=== PATIENT | male | born 1980 | race Caucasian/White ===

== ENCOUNTER → 2019-03-21 12:57 | Outpatient (CLI) | payer OTHER, SELFPAY ==
--- NOTE | 2019-03-21 13:01 | US_ITS ---
PROCEDURE: US KIDNEY CLINICAL INDICATION: COMPARISON: CT ABDOMEN PELVIS WO CON from 03/20/2019 FINDINGS: The right kidney is [id number]. No hydronephrosis, cortical thinning, or renal mass or perinephric fluid collection is evident. The left kidney is [id number]. No hydronephrosis. There is an exophytic hypoechoic nodule projecting off of the posterior aspect of the left kidney. Imaging is somewhat difficult due to the position. This measures 1.7 cm and is hypoechoic however there is suggestion of some shadowing and nodularity. No enhanced through transmission of sound. With some enhanced through transmission of sound. This may represent a cyst. Would recommend a short-term follow-up to confirm stability. IMPRESSION: Exophytic left renal nodule may represent a exophytic cyst hyperdense on CT. Recommend 3 month ultrasound follow-up to confirm short term stability Dictated by: Juan Davis MD 03/21/2019 16:34 Electronically signed by Juan Davis MD in [place] 03/21/2019 16:34
== END ==
PROVIDERS: PCP Nurse Practitioner Family; Visit Provider Nurse Practitioner Family
DX: N28.9 Disorder of kidney and ureter, unspecified (principal)
CPT/HCPCS: 76770

== ENCOUNTER → 2019-06-30 08:47 | Outpatient (CLI) | payer OTHER, SELFPAY ==
--- NOTE | 2019-06-30 08:47 | CT_ITS ---
PROCEDURE: CT ABDOMEN PELVIS WO/W CON CLINICAL INDICATION: left kidney nodule Follow-up renal nodule for COMPARISON: CT ABDOMEN PELVIS WO CON from 03/20/2019 US KIDNEY from 03/21/2019 TECHNIQUE: IV Contrast: 75ML OPTIRAY 350 Oral Contrast none Axial images obtained with sagittal and coronal reformats. All CT scans at the facility use one or more dose reduction, viz: automated exposure control, ma/kV adjustment per patient size (including targeted exams where dose is matched to indication, i.e. head), or iterative reconstruction technique. FINDINGS: LOWER THORAX: No acute finding ABDOMEN & PELVIS: There is a 5 mm hypodensity in the right hepatic lobe at the hepatic dome area image number 21 series 5 nonspecific too small to categorize. The liver has an otherwise unremarkable appearance as does the gallbladder. The spleen, adrenal glands, and pancreas are unremarkable. There is a hyperdense left exophytic renal nodule projecting off the posterior and mid aspect of the left kidney measuring 1.5 cm. This measures 40 Hounsfield units on the unenhanced images without significant enhancement. Previous ultrasound suggested that this represented a cystic lesion. No evidence of intestinal obstruction or free air. No evidence of appendicitis or diverticulitis. There is a small left inguinal hernia and small umbilical hernia which contains fat. No acute bony findings. IMPRESSION: 1. Overall no change in the hyperdense left renal nodule at 1.5 cm which may represent a hyperdense cyst. Continued follow-up suggested in 6 months. 2. Other nonspecific nonacute findings as described above. Dictated by: Juan Davis MD 07/01/2019 13:55 Electronically signed by Juan Davis MD in [place] 07/01/2019 13:55
== END ==
PROVIDERS: PCP Nurse Practitioner Family; Visit Provider Urology
DX: N28.89 Other specified disorders of kidney and ureter (principal)
CPT/HCPCS: 74178; Q9967

== ENCOUNTER → 2020-06-28 12:53 | Outpatient (CLI) | payer OTHER, SELFPAY ==
--- NOTE | 2020-06-28 12:53 | US_ITS ---
PROCEDURE: US KIDNEY CLINICAL INDICATION: N28.1 - Cyst of kidney, acquired Follow-up left renal cyst COMPARISON: US US KIDNEY from 03/21/2019 FINDINGS: The right kidney is [id number]. No hydronephrosis, cortical thinning, or renal mass or perinephric fluid collection is evident. The left kidney is [id number]. No hydronephrosis, cortical thinning, or renal mass or perinephric fluid collection is evident. There is a 1.6 x 1 cm benign-appearing left renal cyst. This is not significantly changed. IMPRESSION: No change small left renal cyst otherwise negative renal ultrasound Dictated by: Juan Davis MD 06/29/2020 09:58 Juan Davis MD in [place] 06/29/2020 09:58
== END ==
PROVIDERS: PCP Nurse Practitioner Family; Visit Provider Urology
DX: N28.1 Cyst of kidney, acquired (principal)
CPT/HCPCS: 76770

== ENCOUNTER → 2021-07-04 12:48 | Outpatient (CLI) | payer OTHER, SELFPAY ==
--- NOTE | 2021-07-04 12:48 | US_ITS ---
FINAL REPORT TECHNIQUE: Ultrasound images of the kidneys and bladder were obtained. CLINICAL HISTORY: .follow up left kidney cyst FINDINGS: The right kidney measures 10.3 cm in length. It is normal in echogenicity. There is no hydronephrosis. The left kidney measures 11.2 cm in length. It is normal in echogenicity. There is a small 1.8 cm left renal cyst. There is no hydronephrosis. The spleen is unremarkable. IMPRESSION: No hydronephrosis. Small left renal cyst. Reviewed, Interpreted and Dictated by Maximus Love III, MD Transcribed by Victorina Petersen Authenticated by Maximus Love III, MD on 07/04/2021 03:18:24 PM [facility]
== END ==
PROVIDERS: PCP Nurse Practitioner Family; Visit Provider Urology
DX: N28.1 Cyst of kidney, acquired (principal)
CPT/HCPCS: 76770

== ENCOUNTER 2023-04-15 08:17 | Emergency (ER) | payer BC, SELFPAY ==
[2023-04-15 08:20] VITALS: BP 181/95; PULSE 93; RESP 18; TEMP 36.7; O2SAT 100; BMI 25.0
--- NOTE | 2023-04-15 08:29 | EXP.UTC ---
Discharge Plan Disposition Patient Disposition: Home, Self-Care Condition: Good Prescriptions Prescriptions: New mupirocin 2 % ointment 1 applic topical TID 7 Days Qty: 15 0RF No Action mometasone 0.1 % cream See Rx Instructions .ROUTE .COMPLEX Rx Instructions: see rx Referrals Follow up/Referrals: Neetu Miranda APRN [Primary Care Provider] - See instructions Activity Restrictions/Add. Instructions Additional Instructions/Restrictions: Keep the wound clean and dry. Keep a dressing on it if you are going to be getting it dirty. Watch the wound for signs of infection, such as redness, swelling, drainage, fever. etc. Take tylenol or ibuprofen for pain. Put the topical antibiotic ointment (muprocin) on the lower portion of the wound that is left open. Follow up with your regular doctor. Return in 10 days to have the sutures removed. GO TO THE ER FOR ANY WORSENING SYMPTOMS OR CONCERNS. Clinical Impressions Clinical Impression: Laceration of knee, right Instructions Patient Instructions: DI for Laceration Repair -- Finger, Mupirocin Discharge ED Provider: Jag Parish [facility] General Stated complaint: AO 04/15/23 0800 Laceration right leg Time Seen by Provider: 04/15/23 08:29 History of Present Illness Provider Complaint: He states that he bumped his right leg into the corner of a sharp glass coffee table this morning and received a laceration on the lateral aspect of the knee. His tetanus immunization is up to date. He denies any difficulty straightening the knee out. He denies the possibility that there could be a foreign object in the wound. Related Data Home Medications Medication Instructions Recorded Confirmed mometasone 0.1 % topical cream See Rx Instructions .Route .COMPLEX 03/27/19 04/15/23 Previous Rx's Medication Instructions Recorded mupirocin 2 % topical ointment 1 applic topical TID 7 days #15 04/15/23 grams Allergies Allergy/AdvReac Type Severity Reaction Status Date / Time Penicillins Allergy Mild rash Verified 04/15/23 08:39 [facility] Disclaimer: The information contained in this section may have been updated after the patient was seen, as this information can be updated by other users. Social History Smoking Status: Current every day smoker tobacco type: cigarettes packs per day: 1 alcohol intake: current substance use type: denies use current occupational status: employed Travel in the last 8 weeks: None ROS Obtained: Yes All systems reviewed & no additional complaints except as documented Constitutional Constitutional: Denies chills and Denies fever(s) Eyes Eyes: Denies eye discharge ENT Ears, Nose, Mouth, and Throat: Denies dizziness, Denies otalgia and Denies sore throat Cardiovascular Cardiovascular: Denies chest pain Respiratory Respiratory: Denies shortness of breath, Denies chest congestion, Denies cough, Denies stridor and Denies wheezing Gastrointestinal Gastrointestingal: Denies nausea or vomiting Musculoskeletal Musculoskeletal: Reports system reviewed and no additional complaints, except as documented and Denies arthralgias Integumentary/Breasts Skin/Breast: Denies rash Neurologic Neurologic: Denies dizziness and Denies paresthesias Allergic/Immunologic Allergic/Immunologic: Denies wheezing Physical Exam General General appearance: alert and in no apparent distress Head Head exam: atraumatic, normocephalic and normal inspection Eye Eye exam: Present normal appearance, PERRL and EOMI ENT ENT exam: Present normal exam, normal oropharynx, mucous membranes moist, TM's normal bilaterally and normal external ear exam Neck Neck exam: Present normal inspection, full ROM and trachea midline; Absent meningismus or lymphadenopathy Chest Chest inspection: Present normal inspection and symmetric chest wall rise; Absent tenderness Respiratory Respiratory exam: Present normal lung sounds bilaterally; Absent respiratory distress Cardiovascular Cardiovascular exam: Present regular rate and normal rhythm; Absent JVD Abdominal Exam Abdominal exam: Present soft and normal bowel sounds; Absent distention, tenderness or guarding Extremities Exam Extremities exam: Present normal inspection, full ROM and normal capillary refill; Absent calf tenderness Expanded Lower Extremity Exam Right: Knee exam: Present knee extension intact Gait: observed and normal Back Exam Back exam: Present normal inspection; Absent tenderness Neurological Exam Neurological exam: Present alert and oriented X3 Psychiatric Psychiatric exam: Present normal affect and normal mood Skin Skin exam: Present other (on the lateral aspect of his right knee there is a 3 cm linear laceration, no deep tissue or tendon damage noted. no foreign body noted. ) Lymphatic Lymphatic Findings: no adenopathy Medical Decision Making Medical Records Medical records reviewed: No I reviewed the patient's medical records. Luis Inquiry Pt receiving controlled substance: No Procedures Risk/Benefits of Procedure(s) Were Explained: Yes Laceration Laceration 1: Site: lower extremity (knee) Side (If applicable): right Size (cm): 3 Description: linear Depth: simple, single layer Local Anesthetic: lidocaine 1% Amount of anesthesia used (mL): 2 Pre-repair: wound explored, irrigated extensively and deep structures intact Skin layer closed with: nylon Size (cm): 5-0 Number of sutures: 10 Technique: simple, interrupted (He tolerated well, good closure was obtained, the edges were approximated well. )
--- NOTE | 2023-04-15 08:57 | PC.NURSE ---
Pt's last tetanus in 2020, Jag VALENTINE placed 10 stitches in the right lateral side of the knee.
[2023-04-15 09:06] VITALS: BP 181/95; PULSE 93; RESP 18; TEMP 36.7; O2SAT 100
== END 2023-04-15 09:06 | disposition home or self-care (01) ==
PROVIDERS: Emergency Provider Nurse Practitioner Family; PCP Nurse Practitioner Family
DX: S81.011A Laceration without foreign body, right knee, initial encounter (principal); F17.210 Nicotine dependence, cigarettes, uncomplicated; W22.03XA Walked into furniture, initial encounter
CPT/HCPCS: 12002; 99204; 99213; G0463

== ENCOUNTER 2023-04-26 06:19 | Emergency (ER) | payer BC, SELFPAY ==
[2023-04-26 06:20] VITALS: BP 162/112; PULSE 89; RESP 16; TEMP 36.6; O2SAT 98; BMI 25.0
[2023-04-26 06:41] VITALS: BP 162/112; PULSE 89; RESP 18; TEMP 36.5; O2SAT 98
== END 2023-04-26 06:42 | disposition home or self-care (01) ==
PROVIDERS: Emergency Provider Emergency Medicine; PCP Nurse Practitioner Family
DX: Z53.9 Procedure and treatment not carried out, unspecified reason (principal)
CPT/HCPCS: 99211